=== PATIENT | female | born 1985 | race American Indian/Alaskan Native ===

== ENCOUNTER 2016-12-12 11:09 | Emergency (ER) | payer MEDICAID ==
[2016-12-12] MEDS ORDERED: CATAPRES PO ONE (11:33)
--- NOTE | 2016-12-12 11:36 | Emergency Department Report ---
Chief Complaint: High BP Stated Complaint: HTN/CHEST PAIN Time Seen by Provider: 12/12/16 11:29 - HPI History of Present Illness: 31-year-old female presents today with chest pain, headache and tingling of left arm since this morning. Patient states that her blood pressure at home was 215/108. She was diagnosed with high blood pressure 2 months ago and has been out of her blood pressure medication 2 weeks. Patient was taking lisinopril and amlodipine. Denies nausea, vomiting, shortness of breath, abdominal pain. - ROS Review of Systems: Per HPI - Exam Vital Signs: Vital Signs 12/12/16 11:23 Temperature 98.4 F Pulse Rate 88 Respiratory 20 Rate Blood Pressure 180/116 O2 Sat by Pulse 100 Oximetry Physical Exam: General: 31-year-old female in no acute distress. Well-developed, well- nourished. CV: Regular rate and rhythm. Lungs: Clear to auscultation bilaterally. Neuro: Alert and oriented 3, normal gait, fluid speech, EOMs intact, normal facial sensation, strength exam 5/5 upper and lower extremities, GCS equals 15 MSE screening note: Focused history and physical exam performed. Due to findings the following was ordered: ED Disposition for MSE Condition: Stable
[2016-12-12 11:50] LABS: Basophils % (Auto) 0.6 % (0.0-1.8); Eosinophils % (Auto) 0.9 % (0.0-4.3); Hematocrit 36.4 % (30.3-42.9); Hemoglobin 11.8 gm/dl (10.1-14.3); Mean Corpuscular HGB Conc 33 % (30-34); Mean Corpuscular Hemoglobin 28 pg (28-32); Mean Corpuscular Volume 85 fl (79-97); Platelet Count 314 K/mm3 (140-440); Red Blood Count 4.31 M/mm3 (3.65-5.03); Red Cell Distribution Width 13.8 % (13.2-15.2); White Blood Count 7.4 K/mm3 (4.5-11.0)
--- NOTE | 2016-12-12 11:58 | XRay Report ---
CHEST 2 VIEWS INDICATION: Chest pain. COMPARISON: None similar at this institution. FINDINGS: PA and lateral chest radiographs suggest top normal heart size. Clear lungs. No pleural effusions or CHF. Intact bones. Probable cholecystectomy clips. CONCLUSION: No acute disease in the chest. Thank you for the opportunity to participate in this patient's care.
[2016-12-12 12:12] LABS: Creatine Kinase MB 1.1 ng/mL (0.0-4.0)
[2016-12-12 12:13] LABS: Anion Gap 19 mmol/L; BUN/Creatinine Ratio 12.85; Blood Urea Nitrogen 9 mg/dL (7-17); Calcium 8.9 mg/dL (8.4-10.2); Carbon Dioxide 24 mmol/L (22-30); Chloride 99.7 mmol/L (98-107); Creatine Kinase 131 units/L (30-135); Glucose 92 mg/dL (65-100); Lipase 39 units/L (13-60); Potassium 3.8 mmol/L (3.6-5.0); Sodium 139 mmol/L (137-145)
[2016-12-12 12:48] LABS: Bacteria,Urine 1+ /HPF (Negative); Bilirubin,Urine NEG (Negative); Blood,Urine SM (Negative); Ketones,Urine NEG (Negative); Leukocyte Esterase,Urine LG (Negative); Mucus,Urine FEW /HPF; Nitrite,Urine NEG (Negative); Protein,Urine <15 mg/dL mg/dL (Negative); Urobilinogen,Urine < 2.0 mg/dL (<2.0)
[2016-12-12] MEDS ORDERED: FIORICET PO ONE (14:17)
[2016-12-12] MEDS ORDERED: TORADOL IV ONE (15:18)
[2016-12-12] MEDS ORDERED: NACL 0.9% 1000 ML 1,000 ML IV ONE (15:18)
[2016-12-12] MEDS ORDERED: REGLAN IV ONE (15:18)
[2016-12-12 16:25] VITALS: BP 123/52
--- NOTE | 2016-12-12 17:48 | Emergency Department Report ---
ED General Adult HPI - General Chief complaint: High BP Stated complaint: HTN/CHEST PAIN Time Seen by Provider: 12/12/16 11:29 Source: patient Mode of arrival: Ambulatory Limitations: No Limitations - History of Present Illness Initial comments: 31-year-old female presents to the emergency department complaining of elevated blood pressure and headache. Patient states she was recently diagnosed with elevated blood pressure approximately 2 months ago. She was started on lisinopril and amlodipine. She states these medications did not make her feel good and she has stopped taking them. She has not had his medications approximately one month. Patient states that she was at school today and began having a headache. Her blood pressure was checked and it was found to be well over 200 systolic. Triage note reports that the patient was having chest pain, however the patient is denying any chest pain to me. Patient was given clonidine in triage prior to being placed in a room. She states her blood pressure is much improved, but her headache still persists. Patient states she has a history of headache in this feels the same. The patient describes a throbbing sensation across her forehead. She denies vision changes, nausea, or vomiting. There are no other complaints. -: Gradual, This morning Location: head Radiation: non-radiation Severity scale (0 -10): 8 Quality: other (throbbing) Consistency: constant Improves with: none Worsens with: none Associated Symptoms: denies other symptoms Treatments Prior to Arrival: none - Related Data Previous Rx's Medication Instructions Recorded Last Taken Type HYDROcodone/APAP 5-325 [[place] 1 each PO Q6HR PRN #20 tablet 12/12/16 Unknown Rx 5/325] Allergies Allergy/AdvReac Type Severity Reaction Status Date / Time No Known Allergies Allergy Unverified 12/12/16 11:23 ED Review of Systems ROS: Stated complaint: HTN/CHEST PAIN Other details as noted in HPI Comment: All other systems reviewed and negative Cardiovascular: as per HPI Neurological: headache ED Past Medical Hx - Past Medical History Previous Medical History?: Yes Hx Hypertension: Yes - Surgical History Past Surgical History?: Yes Hx Cholecystectomy: Yes Additional Surgical History: x 3 - Family History Family history: no significant - Social History Smoking Status: Never Smoker Substance Use Type: Non Opiate Pain, Prescribed - Medications Home Medications: Home Medications Medication Instructions Recorded Confirmed Last Taken Type HYDROcodone/APAP 5-325 [[place] 1 each PO Q6HR PRN #20 tablet 12/12/16 Unknown Rx 5/325] ED Physical Exam - General Limitations: No Limitations General appearance: alert, in no apparent distress - Head Head exam: Present: atraumatic, normocephalic - Eye Eye exam: Present: normal appearance, PERRL, EOMI - ENT ENT exam: Present: normal exam, normal orophraynx, mucous membranes moist - Neck Neck exam: Present: normal inspection, full ROM. Absent: tenderness - Respiratory Respiratory exam: Present: normal lung sounds bilaterally. Absent: respiratory distress - Cardiovascular Cardiovascular Exam: Present: regular rate, normal rhythm, normal heart sounds - GI/Abdominal GI/Abdominal exam: Present: soft, normal bowel sounds. Absent: distended, tenderness - Extremities Exam Extremities exam: Present: normal inspection, full ROM. Absent: tenderness - Back Exam Back exam: Present: normal inspection, full ROM. Absent: tenderness - Neurological Exam Neurological exam: Present: alert, oriented X3. Absent: motor sensory deficit - Skin Skin exam: Present: warm, dry, intact ED Course Vital Signs 12/12/16 12/12/16 12/12/16 11:23 12:08 13:12 Temperature 98.4 F Pulse Rate 88 88 Respiratory 20 Rate Blood Pressure 180/116 180/116 Blood Pressure [Left] O2 Sat by Pulse 100 100 Oximetry 12/12/16 12/12/16 12/12/16 13:20 13:26 13:28 Temperature 98.7 F Pulse Rate 75 86 Respiratory 18 21 21 Rate Blood Pressure 135/74 Blood Pressure 135/74 [Left] O2 Sat by Pulse 99 100 100 Oximetry 12/12/16 12/12/16 12/12/16 13:30 13:40 13:50 Temperature Pulse Rate 62 63 62 Respiratory 13 16 21 Rate Blood Pressure 135/74 135/74 135/74 Blood Pressure [Left] O2 Sat by Pulse 100 100 100 Oximetry 12/12/16 12/12/16 12/12/16 14:00 14:10 14:20 Temperature Pulse Rate 74 72 69 Respiratory 15 13 20 Rate Blood Pressure 126/85 126/85 126/85 Blood Pressure [Left] O2 Sat by Pulse 100 100 100 Oximetry 12/12/16 12/12/16 12/12/16 14:30 14:40 14:50 Temperature Pulse Rate 91 H 74 82 Respiratory 19 14 12 Rate Blood Pressure 126/85 126/85 126/85 Blood Pressure [Left] O2 Sat by Pulse 95 100 100 Oximetry 12/12/16 12/12/16 12/12/16 15:00 15:10 15:20 Temperature Pulse Rate Respiratory 17 11 L 18 Rate Blood Pressure 117/51 117/51 117/51 Blood Pressure [Left] O2 Sat by Pulse 99 100 100 Oximetry 12/12/16 12/12/16 12/12/16 15:30 15:40 15:50 Temperature Pulse Rate Respiratory 18 19 20 Rate Blood Pressure 117/51 117/51 117/51 Blood Pressure [Left] O2 Sat by Pulse 100 100 100 Oximetry 12/12/16 12/12/16 16:00 16:10 Temperature Pulse Rate 68 Respiratory 16 20 Rate Blood Pressure 123/52 123/52 Blood Pressure 123/52 [Left] O2 Sat by Pulse 100 100 Oximetry ED Medical Decision Making - Lab Data Result diagrams: 12/12/16 11:40 12/12/16 11:40 - EKG Data -: EKG Interpreted by Ma EKG shows normal: sinus rhythm, axis, intervals, QRS complexes, ST-T waves Rate: normal - EKG Data When compared to previous EKG there are: previous EKG unavailable Interpretation: normal EKG - Radiology Data Radiology results: report reviewed, image reviewed Chest x-ray shows no acute cardiopulmonary abnormality. - Medical Decision Making Lab and imaging results reviewed and discussed with the patient. Patient reports feeling better with medication. Patient will be discharged home at this time. - Differential Diagnosis hypertension, tension headache, migraine headache Critical care attestation.: If time is entered above; I have spent that time in minutes in the direct care of this critically ill patient, excluding procedure time. ED Disposition Clinical Impression: Headache Qualifiers: Headache type: unspecified Headache chronicity pattern: acute headache Intractability: not intractable Qualified Code(s): R51 - Headache Disposition: DISCHARGED TO HOME OR SELFCARE Is pt being admited?: No Condition: Stable Instructions: Acute Headache (ED) Prescriptions: HYDROcodone/APAP 5-325 [[place] 5/325] 1 each PO Q6HR PRN #20 tablet PRN Reason: Pain Referrals: ALEX QUINTANILLA MD [Primary Care Provider] - 3-5 Days Time of Disposition: 17:48
== END 2016-12-12 17:54 | disposition home or self-care (01) ==
LOC: ED 11:09
DX: R51 Headache (principal); I10 Essential (primary) hypertension; Z90.49 Acquired absence of other specified parts of digestive tract
CPT/HCPCS: 36415; 71020; 80048; 81001; 82550; 82553; 83690; 84484; 85025; 93005; 93010; 96361; 96374; 96375; 99284; J1885; J2765; J7030